=== PATIENT | female | born 1980 | race Caucasian/White ===

== ENCOUNTER → 2017-08-13 | Outpatient (CLI) | payer OTHER ==
[~2017-08-13] MED LIST: PRENTAB26 PO
== END | disposition home or self-care (01) ==
LOC: C.LABSPEC 14:22
PROVIDERS: ATTEND Obstetrics & Gynecology
DX: Z34.81 Encounter for supervision of other normal pregnancy, first trimester (principal)

== ENCOUNTER → 2017-08-13 | Outpatient (CLI) | payer OTHER | END | disposition home or self-care (01) | LOC: C.PAPS 15:31 | PROVIDERS: ATTEND Obstetrics & Gynecology | DX: Z12.4 Encounter for screening for malignant neoplasm of cervix (principal); Z33.1 Pregnant state, incidental ==

== ENCOUNTER → 2017-10-14 | Outpatient (CLI) | payer OTHER ==
[2017-10-14 09:41] LABS: BASO % 0.3 %; BASO ABS # 0.03 K/uL (0-0.2); EOS % 1.4 %; EOS ABS # 0.13 K/uL (0-0.5); HEMATOCRIT 39.1 % (37-47); HEMOGLOBIN 13.6 g/dL (12.0-16.0); IG# 0.06 K/uL (0.00-0.02); LYMPH % 19.7 %; MEAN CELL VOLUME 88.1 fL (80-100); MEAN CORPUSCULAR HEMOGLOBIN 30.6 pg (25-34); MEAN CORPUSCULAR HGB CONC 34.8 g/dl (32-36); MEAN PLATELET VOLUME 9.1 fL (7.4-10.4); MONO % 4.8 %; MONO ABS # 0.44 K/uL (0.11-0.59); NEUT % 73.1 %; PLATELET COUNT 284 K/uL (130-400); RED CELL DISTRIBUTION WIDTH CV 13.5 % (11.5-14.5); RED CELL DISTRIBUTION WIDTH SD 43.9 fL (36.4-46.3); WHITE BLOOD COUNT 9.16 K/uL (4.8-10.8)
== END | disposition home or self-care (01) ==
LOC: C.LAB 07:30
PROVIDERS: ATTEND Obstetrics & Gynecology
DX: O09.512 Supervision of elderly primigravida, second trimester (principal); Z3A.16 16 weeks gestation of pregnancy

== ENCOUNTER 2018-03-17 05:21 | Inpatient (IN) | payer OTHER ==
[~2018-03-17] VITALS: Ht 174 cm; Wt 116.8 kg
[2018-03-19 08:39] VITALS: Ht 174 cm; Wt 116.8 kg
[2018-03-19] MEDS ORDERED: LACTATED RINGER'S 1000ML 1,000 ML IV SCH (08:57)
[2018-03-19] MEDS ORDERED: PENICILLIN G POTASSIUM IV 6 MU in DEXTROSE 5% 250ML 250 ML IV ONE (09:00)
[2018-03-19] MEDS ORDERED: LACTATED RINGER'S 1000ML 500 ML IV PRN (09:00)
[2018-03-19] MEDS ORDERED: OXYTOCIN 30 UNITS/500ML NSS IV PRN ×2 (09:00→15:30)
[2018-03-19] MEDS ORDERED: PENICILLIN G POTASSIUM IV 3 MU in DEXTROSE 5% 100ML 100 ML IV PRN (09:00)
[2018-03-19 09:21] LABS: HEMATOCRIT 41.5 % (37-47); HEMOGLOBIN 14.3 g/dL (12.0-16.0); MEAN CELL VOLUME 89.6 fL (80-100); MEAN CORPUSCULAR HEMOGLOBIN 30.9 pg (25-34); MEAN CORPUSCULAR HGB CONC 34.5 g/dl (32-36); MEAN PLATELET VOLUME 9.6 fL (7.4-10.4); PLATELET COUNT 237 K/uL (130-400); RED CELL DISTRIBUTION WIDTH CV 13.7 % (11.5-14.5); RED CELL DISTRIBUTION WIDTH SD 44.9 fL (36.4-46.3); WHITE BLOOD COUNT 10.59 K/uL (4.8-10.8)
[2018-03-19] MEDS ORDERED: BENZOCAINE 20% AER SPR 82.5 GM CAN EXT PRN (15:30)
[2018-03-19] MEDS ORDERED: IBUPROFEN 600 MG TAB PO PRN (15:30)
[2018-03-19] MEDS ORDERED: HYDROCORTISONE ACETATE 25 MG SUPP PR PRN (15:30)
[2018-03-19] MEDS ORDERED: OXYCODONE/ACETAMINOPHEN 5-325 TAB PO PRN (15:30)
[2018-03-19] MEDS ORDERED: DIPHTHERIA/TETANUS/PERTUSSIS 0.5 ML SYR/VIAL IM. ONE (15:30)
[2018-03-19] MEDS ORDERED: SUPERCREAM 0.870 % 15GM JAR EXT PRN (15:30)
[2018-03-19] MEDS ORDERED: LANOLIN OINT EXT PRN (15:30)
[2018-03-19] MEDS ORDERED: ACETAMINOPHEN 325 MG TAB PO PRN (15:30)
[2018-03-19] MEDS ORDERED: ACETAMINOPHEN/CODEINE 300/30MG TAB PO PRN ×2 (15:30)
--- NOTE | 2018-03-19 17:14 | DELIVERY SUMMARY ---
DATE OF OPERATION: 03/19/2018 Mrs. Ackerman was brought in for induction. She was over her due date. She requested induction. On the day of admission, she was brought in. Her cervix was about 4 cm on admission. She had estimated weight of over 8 pounds. There was about a -3 station. She was started on IV Pitocin and penicillin. 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 She got 2 units of penicillin. After second unit was in, her cervix was about 6 cm. Membranes were ruptured surgically. There was very little fluid. She went to full dilatation, pushed out a live infant via direct occiput anterior position over an intact perineum. After delivery of the head, there was a nuchal cord, which was reduced over the head. Shoulders were delivered without difficulty. Cord was clamped and cut by the father. Cord blood was taken. With IV Pitocin running, the placenta was removed intact. Perineum was found to be intact. There were no lacerations. Estimated blood loss was 200 mL, and the estimated Apgars were 8 and 9 respectively. I attest to the content of the Intraoperative Record and any orders documented therein. Any exception s are noted below.
[2018-03-19 18:15] VITALS: BP 142/79; PULSE 108; TEMP 36.5; O2SAT 96
[2018-03-19] MEDS: DOCUSATE SODIUM 100 MG CAP PO SCH (19:49)
[2018-03-19 19:50] VITALS: BP 126/87; PULSE 92; TEMP 36.6; O2SAT 98
[2018-03-19 23:00] VITALS: BP 115/77; PULSE 92; TEMP 36.6; O2SAT 96
[2018-03-20 03:05] VITALS: BP 118/74; PULSE 84; TEMP 36.6; O2SAT 96
[2018-03-20 06:09] LABS: HEMATOCRIT 38.9 % (37-47); HEMOGLOBIN 13.3 g/dL (12.0-16.0)
[2018-03-20 08:02] VITALS: BP 116/74; PULSE 90; TEMP 36.4; O2SAT 95
[2018-03-20] MEDS: PRENATAL VITAMIN TAB PO SCH (08:41)
[2018-03-20] MEDS: DOCUSATE SODIUM 100 MG CAP PO SCH ×2 (08:41→20:20)
[2018-03-20] MEDS: FERROUS SULFATE 325 MG TAB PO SCH (08:41)
[2018-03-20 12:04] VITALS: BP 117/80; PULSE 90; TEMP 36.8; O2SAT 95
--- NOTE | 2018-03-20 16:09 | Progress Note ---
Subjective Mar 20, 2018. Subjective conversation w/ patient Ambulation: ambulating normally Voiding: no voiding problems Passing Gas: Yes Diet Tolerance: Regular Diet Lochia: Small Feeding Type: Breast Feeding Review of Systems Constitutional: + fever Objective Vital Signs Date Time Temp Pulse Resp B/P (MAP) Pulse Ox O2 Delivery O2 Flow Rate FiO2 03/20/18 12:04 36.8 90 18 117/80 (92) 95 Room Air 03/20/18 08:02 36.4 90 18 116/74 (88) 95 Room Air 03/20/18 07:55 Room Air 03/20/18 03:05 36.6 84 20 118/74 (89) 96 Room Air 03/19/18 23:00 36.6 92 16 115/77 (90) 96 Room Air 03/19/18 19:50 98 Room Air 03/19/18 19:50 36.6 92 16 126/87 (100) 98 Room Air 03/19/18 18:15 36.5 108 18 142/79 (100) 96 Room Air 03/19/18 18:15 96 Room Air Physical Exam General Appearance: WELL-APPEARING Fundus: Firm, Non-Tender Extremities: no pedal edema, no calf tenderness Laboratory Results Last 24 Hours Test 03/20/18 05:44 Hemoglobin 13.3 g/dL Hematocrit 38.9 % Assessment and Plan Post- Day#: 1
[2018-03-20 16:20] VITALS: BP 123/72; PULSE 92; TEMP 36.7
[2018-03-20] MEDS ORDERED: BISACODYL 5 MG TABEC PO SCH (20:00)
[2018-03-20 20:20] VITALS: BP 124/79; PULSE 96; TEMP 36.4
[2018-03-20 23:25] VITALS: BP 118/81; PULSE 93; TEMP 36.6
[2018-03-21] MEDS ORDERED: BISACODYL 10 MG SUPP PR PRN (07:00)
[2018-03-21 08:00] VITALS: BP 123/84; PULSE 91; TEMP 36.4; O2SAT 98
[2018-03-21] MEDS: DOCUSATE SODIUM 100 MG CAP PO SCH (08:00)
[2018-03-21] MEDS: FERROUS SULFATE 325 MG TAB PO SCH (08:33)
[2018-03-21] MEDS: PRENATAL VITAMIN TAB PO SCH (08:33)
--- NOTE | 2018-03-21 09:07 | Progress Note ---
Subjective Mar 21, 2018. Subjective conversation w/ patient Ambulation: ambulating normally Voiding: no voiding problems Passing Gas: Yes Diet Tolerance: Regular Diet Lochia: Small Feeding Type: Breast Feeding Review of Systems Constitutional: + fever Objective Vital Signs Date Time Temp Pulse Resp B/P (MAP) Pulse Ox O2 Delivery O2 Flow Rate FiO2 03/21/18 08:00 36.4 91 18 123/84 (97) 98 Room Air 03/20/18 23:25 36.6 93 18 118/81 (93) Room Air 03/20/18 23:25 Room Air 03/20/18 20:20 36.4 96 22 124/79 (94) Room Air 03/20/18 16:20 Room Air 03/20/18 16:20 36.7 92 20 123/72 (89) Room Air 03/20/18 12:04 36.8 90 18 117/80 (92) 95 Room Air Physical Exam General Appearance: WELL-APPEARING Abdomen: non tender Fundus: Firm, Non-Tender Extremities: no pedal edema, no calf tenderness Assessment and Plan Post- Day#: 2
--- NOTE | 2018-03-21 09:09 | Discharge Instructions ---
Discharge Instructions Date of Service Mar 21, 2018. Admission Reason for Admission: Induction Discharge Discharge Diagnosis / Problem: induction Discharge Goals Goal(s): Routine recovery after delivery Activity Recommendations Activity Limitations: as noted below ACTIVITY RECOMMENDATIONS: * Gradual return to full activity over the next 2-3 weeks. * No lifting - nothing heavier than baby over the next 2-3 weeks. * Do not engage in vigorous exercise, sexual activity or sports until cleared by your physician. * Do not drive or operate any motorized equipment until cleared by your physician. * You may shower/bathe daily. DIET: Resume Previous Diet If Breast-feeding: * Increase caloric intake by 500 calories, eat 3 well balanced meals, 2 high protein snacks a day and drink 6-8 8oz. glasses of fluid per day. BREAST CARE: If you are not breast feeding: * Wear a supportive bra 24 hours a day for one to two weeks. * Avoid stimulating your breasts and nipples as much as possible during the first few weeks after delivery. * When taking a shower, have the warm water hit your back, not breasts. * When your breasts feel full, apply ice packs. Usually three to four times a day helps ease the discomfort. * Take a mild pain medication (Tylenol / Motrin) when you are uncomfortable. If breast feeding: * Use breast milk to lubricate nipples. Lansinoh cream may be used for sore nipples. You do not need to remove cream prior to breast feeding. If using a different brand of cream, check the label for directions regarding removal of cream prior to nursing. * Wear a supportive bra. * If having problems with breasts or breast feeding, call a business objects consultant or your health care provider. OVER THE COUNTER MEDICATION: * For discomfort or pain, you may use Acetaminophen (Tylenol), Ibuprofen (Advil ), or Naproxen (Aleve) following the package directions. * For constipation you may use Colace following the package directions. SPECIAL CARE INSTRUCTIONS: * Vaginal rest (no tampons, douching, intercourse) until after doctor 's visit. * control as discussed with doctor. * Verbalizes understanding of car seat law as reviewed with patient nursing. * Car Seat hand-out given and reviewed with patient by nursing. * Shaken baby information reviewed with patient by nursing. Call you doctor if: * Temperature greater than or equal to 100.4 degrees F or 38.0 degrees C. Take your temperature twice daily for a week. * Bleeding becomes heavier than the heaviest part of your period - saturating a sanitary pad within an hour. * Passing large clots. * Bleeding has a foul smelling odor. * Signs and symptoms of phlebitis: leg pain, warm, red or swollen area on leg. * "Baby Blues" lasting longer than two weeks. ++ If you have had a and incision has increased pain, redness, swelling, presence of any drainage, or if the incision starts to open up. If you have any questions or concerns, call your health care practitioner at [phone]. FOLLOW-UP VISIT: Please call the office at to schedule a 6 week examination. . Current Hospital Diet ACTIVITY RECOMMENDATIONS: * Gradual return to full activity over the next 2-3 weeks. * No lifting - nothing heavier than baby over the next 2-3 weeks. * Do not engage in vigorous exercise, sexual activity or sports until cleared by your physician. * Do not drive or operate any motorized equipment until cleared by your physician. * You may shower/bathe daily. DIET: Resume Previous Diet If Breast-feeding: * Increase caloric intake by 500 calories, eat 3 well balanced meals, 2 high protein snacks a day and drink 6-8 8oz. glasses of fluid per day. BREAST CARE: If you are not breast feeding: * Wear a supportive bra 24 hours a day for one to two weeks. * Avoid stimulating your breasts and nipples as much as possible during the first few weeks after delivery. * When taking a shower, have the warm water hit your back, not breasts. * When your breasts feel full, apply ice packs. Usually three to four times a day helps ease the discomfort. * Take a mild pain medication (Tylenol / Motrin) when you are uncomfortable. If breast feeding: * Use breast milk to lubricate nipples. Lansinoh cream may be used for sore nipples. You do not need to remove cream prior to breast feeding. If using a different brand of cream, check the label for directions regarding removal of cream prior to nursing. * Wear a supportive bra. * If having problems with breasts or breast feeding, call a business objects consultant or your health care provider. OVER THE COUNTER MEDICATION: * For discomfort or pain, you may use Acetaminophen (Tylenol), Ibuprofen (Advil ), or Naproxen (Aleve) following the package directions. * For constipation you may use Colace following the package directions. SPECIAL CARE INSTRUCTIONS: * Vaginal rest (no tampons, douching, intercourse) until after doctor 's visit. * control as discussed with doctor. * Verbalizes understanding of car seat law as reviewed with patient nursing. * Car Seat hand-out given and reviewed with patient by nursing. * Shaken baby information reviewed with patient by nursing. Call you doctor if: * Temperature greater than or equal to 100.4 degrees F or 38.0 degrees C. Take your temperature twice daily for a week. * Bleeding becomes heavier than the heaviest part of your period - saturating a sanitary pad within an hour. * Passing large clots. * Bleeding has a foul smelling odor. * Signs and symptoms of phlebitis: leg pain, warm, red or swollen area on leg. * "Baby Blues" lasting longer than two weeks. ++ If you have had a and incision has increased pain, redness, swelling, presence of any drainage, or if the incision starts to open up. If you have any questions or concerns, call your health care practitioner at [phone]. FOLLOW-UP VISIT: Please call the office at to schedule a 6 week examination. Patient's current hospital diet: Regular OB Diet Discharge Diet Recommended Diet: Regular Diet Pending Studies Studies pending at discharge: no Medical Emergencies . Who to Call and When: Medical Emergencies: If at any time you feel your situation is an emergency, please call 911 immediately. . Non-Emergent Contact Non-Emergency issues call your: Psychologist Call Non-Emergent contact if: temperature is above 100.5 . . "Provider Documentation" section prepared by Andrey Elias. .
[2018-03-21 11:25] VITALS: BP 133/84; PULSE 90; TEMP 36.6; O2SAT 96
[2018-03-21 12:30] VITALS: BP_DIAS 84; PULSE 90; TEMP 36.6
== END 2018-03-21 13:26 | disposition home or self-care (01) | DRG 775 ==
LOC: C.LD 03-19 07:37 → C.OBG 03-19 18:32
PROVIDERS: ADMIT Obstetrics & Gynecology; ATTEND Obstetrics & Gynecology
PROC: 10E0XZZ Delivery of Products of Conception, External Approach (ICD-10-PCS; principal; 2018-03-19)
PROC: 3E030VJ Introduction of Other Hormone into Peripheral Vein, Open Approach (ICD-10-PCS; 2018-03-19)
DX: O48.0 Post-term pregnancy (principal); O69.81X0 Labor and delivery complicated by cord around neck, without compression, not applicable or unspecified; O99.824 Streptococcus B carrier state complicating childbirth; Z37.0 Single live birth; Z3A.40 40 weeks gestation of pregnancy; O09.523 Supervision of elderly multigravida, third trimester